=== PATIENT | female | born 1945 | race Caucasian/White ===

== ENCOUNTER 2018-08-30 10:22 | Outpatient (CLI) | payer MEDICARE, BC ==
--- NOTE | 2018-08-30 12:19 | MRI ---
LUMBAR SPINE MRI WITHOUT IV CONTRAST: HISTORY: Lumbar stenosis with neurogenic claudication. COMPARISON: 12/07/2016 FINDINGS: The conus medullaris is somewhat low-lying, extending down to L2-L3. Diffuse disk osteophytosis changes with ligament and facet hypertrophic changes. Small disk osteophy marleni noted at T11-T12 and T12-L1, with mild thecal sac indention but no cord compression. L1-L2: Diffuse disk osteophytosis with mild indention of the ventral thecal sac and very mild latera l recess stenosis, without significant foraminal stenosis. L2-L3: Focal right paracentral protrusion with moderate right lateral recess stenosis and mild right foraminal stenosis. L3-L4: There is diffuse disk osteophytosis with moderate canal and lateral recess stenosis and sever e bilateral foraminal stenosis. This appears to be somewhat progressive from the prior study. Pedic le screw and laminectomy changes are noted at L4-L5. At the mid L4 level, there is noted to be a lef t-sided synovial cyst, resulting in some posterolateral thecal sac compression. This is more promine nt than on the prior study. L4-L5: No significant central canal, lateral recess, or foraminal stenosis. L5-S1: Diffuse disk osteophytosis changes at L5-S1 with bilateral lateral recess stenosis, worse on the right side, and bilateral foraminal stenosis. Very minimal type I endplate changes at L3-L4. IMPRESSION: 1. Variable severity multilevel disk osteophytosis changes, with variable severity canal, lateral re cess, and foraminal stenosis. 2. Postoperative pedicle screw placement changes at L4-L5. 3. The most severe involvement appears to be L4-L5. 4. Other findings as above. POS: TPC
== END 2018-08-30 10:23 | disposition home or self-care (01) ==
LOC: BICMRI 10:22
PROVIDERS: ATTEND Anesthesiology Pain Medicine
DX: M48.062 Spinal stenosis, lumbar region with neurogenic claudication (principal); M25.78 Osteophyte, vertebrae; Z98.890 Other specified postprocedural states
CPT/HCPCS: 72148

== ENCOUNTER 2018-10-07 14:25 | Outpatient (CLI) | payer MEDICARE, BC ==
--- NOTE | 2018-10-07 15:09 | RAD ---
Exam: Lumbar spine 3 views HISTORY: Low back pain. FINDINGS: Bilateral transpedicular screws at the L4-L5 level. Disc prosthesis. No perihardware lucenc y. Moderate to severe loss of disc space height along the posterior aspect of L3-L4. Exaggeration of lordosis at L3-L4. Neutral position, there is a 3.5 mm of retrolisthesis of L1 upon L2; flexion 3 mm, extension 4.9 mm Neutral position there is 4.8 mm retrolisthesis of L2 upon L3; flexion 3.6 mm; extension 4.2 mm IMPRESSION: 1. Lumbar fusion at L4-L5. 2. Grade 1 retrolisthesis of L1 upon L2 and L2 upon L3 with slight variation upon extension flexion. 3. Exaggerated lordosis at L3-L4 with severe loss of disc space height along the posterior aspect.
--- NOTE | 2018-10-07 15:24 | RAD ---
AP view pelvis. HISTORY: Pelvic pain. AP view pelvis demonstrates pelvis to be unremarkable. No evidence of pelvic fractures, subluxations or bony lesion seen. IMPRESSION: unremarkable AP view pelvis.
--- NOTE | 2018-10-07 15:29 | MRI ---
MRI CERVICAL SPINE: HISTORY: Neck pain. FINDINGS: The spinal cord is unremarkable with no evidence of cord masses or lesions. C2-3: Unremarkable C3-4: Disc desiccation seen. There is a broad-based disc osteophyte complex resulting in mild derek yola of the thecal sac. The neural foramen are patent. Disc desiccation seen. There is a broad-based disc osteophyte complex centrally. The neural foramen a re patent. C4-5: Mild disc desiccation seen. No significant degree of central and neural foraminal narrowing see n. C5-6: Disc desiccation seen. There is a broad-based disc osteophyte complex centrally. No significant degree of central stenosis seen. The right neural foramen is patent. Mild left C5-6 neural foraminal narrowing seen. C6-7: Disc desiccation seen. There is a broad-based disc osteophyte complex resulting in mild thecal sac compression. The neural foramen are patent. C7-T1: Unremarkable. IMPRESSION: Multilevel disc desiccation and broad-based disc osteophyte complexes. No significant degree of centr al stenosis seen. Areas of neural foraminal narrowing also seen as described above. Transcribed Date/Time: 10/07/2018 3:50 PM
== END 2018-10-07 14:26 | disposition home or self-care (01) ==
LOC: TBSIIMAG 14:25
PROVIDERS: ATTEND Neurological Surgery
DX: M50.10 Cervical disc disorder with radiculopathy, unspecified cervical region (principal); M48.02 Spinal stenosis, cervical region; M54.16 Radiculopathy, lumbar region; M43.16 Spondylolisthesis, lumbar region; M40.56 Lordosis, unspecified, lumbar region; Z98.1 Arthrodesis status
CPT/HCPCS: 72040; 72100; 72141